=== PATIENT | male | born 1960 | race Caucasian/White ===

== ENCOUNTER 2020-07-25 10:22 | Outpatient (NON) | payer OTHER, SELFPAY ==
[2020-07-26 13:30] LABS: SARS-CoV-2 RNA PCR Negative
== END 2020-07-25 10:23 ==
PROVIDERS: Nurse Practitioner Family; PCP Family Medicine; Visit Provider Family Medicine
DX: R05 Cough (principal); Z20.828 Contact with and (suspected) exposure to other viral communicable diseases
CPT/HCPCS: 87635; C9803; U0003

== ENCOUNTER 2022-07-23 15:59 | Outpatient (CLI) | payer SELFPAY ==
[2022-07-23 16:34] LABS: Hematocrit 47.2 % (42.0-52.0); Hemoglobin 15.5 g/dL (14.0-18.0); Immature Platelet Fraction Pct 8.5 % (0.9-11.2); Mean Corpuscular HGB Conc 32.8 g/dl (32-36); Mean Corpuscular Hemoglobin 28.3 pg (26-34); Mean Corpuscular Volume 86.1 fl (80-100); Mean Platelet Volume 10.5 fl (7.4-10.4); Platelet Count Result 1408 k/mm3 (150-375); Red Blood Count 5.48 M/mm3 (4.6-6.20); White Blood Count 33.4 K/mm3 (4.5-10.0)
[2022-07-23 16:42] LABS: Alanine Aminotransferase 30 U/L (6-50); Albumin Level 4.8 g/dL (3.5-5.1); Alkaline Phosphatase 54 U/L (38-126); Anion Gap 10 mmol/L (8-16); Aspartate Amino Transferase 28 U/L (17-59); Bilirubin,Total 0.6 mg/dL (0.2-1.3); Blood Urea Nitrogen 13 mg/dL (9-20); Calcium 9.5 mg/dL (8.4-10.2); Carbon Dioxide 29 mmol/L (22-30); Chloride 104 mmol/L (98-107); Cholesterol 182 mg/dL (0-200); Estimated Glomerular Filt Rate > 60; Glucose 88 mg/dL (65-110); HDL Direct 35 mg/dL; Potassium 3.9 mmol/L (3.4-5.0); Sodium 143 mmol/L (137-145); Triglycerides 217 mg/dL (<150)
[2022-07-23 16:53] LABS: LDL Cholesterol Direct 102 mg/dL
[2022-07-23 17:14] LABS: Prostate Specific Antigen 2.1 ng/mL (< OR = 4.0)
[2022-07-23 21:20] LABS: Band Neutrophils Percent 1 % (0-6); Basophils Percent Manual 3 % (0-1); Lymphocytes Absolute Manual 4.67 K/mm3 (1.1-4.5); Metamyelocytes Percent 2 %; Monocytes Absolute Manual 0.33 K/mm3 (0.1-0.90); Monocytes Percent Manual 1 % (3-9); Myelocytes Percent 2 %; Neutrophils Absolute Manual 26.05 K/mm3 (1.3-6.7); Neutrophils Percent Manual 77 % (46-73); Platelet Estimate Increased (Adequate); Total Cells Counted 100
[2022-07-23 21:21] LABS: Schistocytes None Seen (NORMAL)
== END 2022-07-23 16:00 | disposition home or self-care (01) ==
PROVIDERS: PCP Family Medicine; Visit Provider Nurse Practitioner Gerontology
DX: E78.2 Mixed hyperlipidemia (principal); I10 Essential (primary) hypertension; Z12.5 Encounter for screening for malignant neoplasm of prostate
CPT/HCPCS: 36415; 80053; 80061; 84153; 85025; 85055; G0103

== ENCOUNTER 2022-08-09 06:11 | Emergency (ER) | payer SELFPAY ==
[2022-08-09] VITALS (24 sets, daily range): BP systolic 108–180; BP diastolic 67–86; PULSE 57–86; RESP 12–24; TEMP 36.5–37.2; O2SAT 94–97
--- NOTE | ~2022-08-09 | CT_ITS ---
EXAMINATION: CTA chest PE protocol DATE: 08/09/2022 07:49 INDICATION: Left chest pain. TECHNIQUE: Computed tomography angiography (CTA) of the chest was performed with 100 mL Omnipaque-350 intravenous contrast timed to evaluate the pulmonary arteries. Coronal maximum intensity projection 3D-reconstructions were created by the technologist. Automated exposure control and iterative reconst ruction technique were employed. The dose-length product was 712.78 mGy-cm. COMPARISON: Chest CT 01/18/2010 FINDINGS: There is no pneumonia or pleural effusion. The heart size is normal. No pericardial effusio n. There are coronary artery calcifications. There is no pulmonary embolus. There are cysts in the li chitra measuring up to 9 mm. There is mild thoracic spondylosis. IMPRESSION: 1. No pulmonary embolus. Sensitivity is severely decreased in the inferior lungs by motion artifact. Reviewed, dictated and finalized at location A. UPPER AND BOTTOM LACER IMPRESSION: 1. No pulmonary embolus. Sensitivity is severely decreased in the inferior lung s by motion artifact.
--- NOTE | ~2022-08-09 | XR_ITS ---
EXAMINATION: XR chest 2V DATE: 08/09/2022 07:23 INDICATION: Left chest and shoulder pain. TECHNIQUE: Frontal and lateral views of the chest were obtained. COMPARISON: Chest 2 views 03/03/2015 FINDINGS: The chest demonstrates clear lungs without pneumonia, pleural effusion, or pneumothorax. Th e heart size is normal. IMPRESSION: 1. No acute cardiopulmonary disease. Reviewed, dictated and finalized at location A. 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
--- NOTE | 2022-08-09 06:17 | ECG_ITS ---
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
[2022-08-09] MEDS: KETOROLAC 30 MG/ML VIAL (*BKC) IV PUSH (06:55)
[2022-08-09 07:01] LABS: Hematocrit 46.8 % (40.0-54.0); Hemoglobin 15.8 g/dL (14.0-18.0); Immature Platelet Fraction Pct 4.5 % (1.0-7.0); Mean Corpuscular HGB Conc 33.8 g/dL (32.0-36.0); Mean Corpuscular Hemoglobin 28.6 pg (27.0-31.0); Mean Corpuscular Volume 84.8 fL (78.0-102.0); Mean Platelet Volume 10.6 fl (8.7-11.0); Platelet Count Result 1110 K/mm3 (150-420); Red Blood Count 5.52 M/mm3 (4.70-6.10); Red Cell Distribution Width 18.1 % (11.6-14.4)
--- NOTE | 2022-08-09 07:02 | PC.NURSE ---
Report given to MADELIN Obrien
[2022-08-09 07:04] LABS: White Blood Count 28.8 K/mm3 (4.8-10.8)
[2022-08-09 07:12] LABS: Add Urine Microscopic? YES; Appearance Urine Clear (Clear); Bilirubin Urine Negative (Negative); Blood Urine 1+ (Negative); Color Urine Light Yellow (Yellow); Glucose Urine UA Negative (Negative); Ketones Urine Negative (Negative); Leukocyte Esterase Ur Negative LEU/UL (Negative); Nitrate Urine Negative (Negative); Protein Urine Negative (Negative); Urobilinogen Urine 0.2 mg/dL (0.2-1.0)
[2022-08-09 07:13] LABS: INR 1.1; Partial Thromboplastin Time 29.7 SEC (23.90-30.70); Prothrombin Time 11.9 Seconds (9.50-12.10)
[2022-08-09 07:21] LABS: Alanine Aminotransferase 32 U/L (16-63); Albumin Level 3.9 g/dL (3.4-5.0); Alkaline Phosphatase 67 U/L (46-116); Anion Gap 11 mmol/L (8-16); Aspartate Amino Transferase 19 U/L (15-37); Bilirubin,Total 0.4 mg/dL (0.00-1.00); Blood Urea Nitrogen 7 mg/dL (7-18); Calcium 8.7 mg/dL (8.5-10.1); Carbon Dioxide 24 mmol/L (21-32); Chloride 102 mmol/L (98-108); Estimated CRCL calculation 91 ml/min; Estimated Glomerular Filt Rate > 60; Glucose 116 mg/dL (70-99); Lipase 66 U/L (73-393); NT Pro B Type Natriuretic Pept 30 pg/mL (0-125); Osmolality Calculated 283 mOsm/kg (285-295); Potassium 3.2 mmol/L (3.5-5.1); Sodium 137 mmol/L (136-145)
[2022-08-09 07:22] LABS: Troponin I 8.4 ng/L (0.00-60.4)
[2022-08-09 07:22] LABS: RBC Urine 0-2 /hpf (0-2); WBC Urine None seen /hpf (0-3)
[2022-08-09 07:23] LABS: D Dimer 1.16 mg/L (0.19-0.50)
[2022-08-09 07:23] LABS: Bacteria Urine None seen /hpf
--- NOTE | 2022-08-09 07:23 | PC.NURSE ---
ddimer 1.16. erp made aware.
[2022-08-09 07:24] LABS: Band Neutrophils Percent 1 % (0-6); Lymphocytes Absolute Manual 0.86 K/mm3 (1.1-4.5); Lymphocytes Percent Manual 3 % (18-44); Monocytes Absolute Manual 0.86 K/mm3 (0.1-0.90); Monocytes Percent Manual 3 % (3-9); Neutrophils Absolute Manual 26.49 K/mm3 (1.3-6.7); Neutrophils Percent Manual 91 % (46-73); Platelet Estimate Increased (Adequate); Total Cells Counted 100
== END 2022-08-09 10:13 | disposition home or self-care (01) ==
PROVIDERS: Emergency Medicine; Emergency Provider Emergency Medicine; PCP Family Medicine
DX: R07.89 Other chest pain (principal); D72.829 Elevated white blood cell count, unspecified; I10 Essential (primary) hypertension; E78.2 Mixed hyperlipidemia; F17.210 Nicotine dependence, cigarettes, uncomplicated
CPT/HCPCS: 36415; 71046; 71275; 80053; 81001; 83690; 83880; 84484; 85025; 85055; 85380; 85610; 85730; 93005; 96374; 99284; J1885; Q9967

== ENCOUNTER 2022-09-06 10:23 | Outpatient (CLI) | payer SELFPAY ==
[2022-09-06 10:52] LABS: Basophils Absolute Auto 2.7 K/mm3 (0.0-0.1); Basophils Percent Auto 7.9 % (0.2-1.2); Eosinophils Absolute Auto 0.4 K/mm3 (0-0.3); Eosinophils Percent Auto 1.2 % (0-4.4); Hematocrit 46.1 % (42.0-52.0); Hemoglobin 15.3 g/dL (14.0-18.0); Immature Granulocyte Absolute 3.31 K/mm3 (0.00-0.031); Immature Granulocyte Percent A 9.7 % (0-0.5); Immature Platelet Fraction Pct 8.1 % (0.9-11.2); Lymphocytes Absolute Auto 4.94 K/mm3 (0.9-3.2); Lymphocytes Percent Auto 14.4 % (18.3-44.2); Mean Corpuscular HGB Conc 33.2 g/dl (32-36); Mean Corpuscular Hemoglobin 28.7 pg (26-34); Mean Corpuscular Volume 86.5 fl (80-100); Mean Platelet Volume 10.7 fl (7.4-10.4); Monocytes Absolute Auto 0.8 K/mm3 (0.1-0.6); Monocytes Percent Auto 2.5 % (2.6-8.5); Neutrophils Percent Auto 64.3 % (45.5-73.1); Nucleated Red Blood Cells Perc 0.1 % (0.0-0.2); Platelet Count Result 1371 k/mm3 (150-375); Red Blood Count 5.33 M/mm3 (4.6-6.20); Red Cell Distribution Width 18.7 % (11.5-14.5); White Blood Count 34.2 K/mm3 (4.5-10.0)
[2022-09-06 11:00] LABS: Alanine Aminotransferase 31 U/L (6-50); Albumin Level 4.6 g/dL (3.5-5.1); Alkaline Phosphatase 55 U/L (38-126); Anion Gap 5 mmol/L (8-16); Aspartate Amino Transferase 27 U/L (17-59); Bilirubin,Total 0.5 mg/dL (0.2-1.3); Blood Urea Nitrogen 13 mg/dL (9-20); Calcium 9.3 mg/dL (8.4-10.2); Carbon Dioxide 29 mmol/L (22-30); Chloride 105 mmol/L (98-107); Estimated Glomerular Filt Rate > 60; Glucose 103 mg/dL (65-110); Potassium 3.7 mmol/L (3.4-5.0); Sodium 139 mmol/L (137-145)
[2022-09-06 11:38] LABS: Atypical Lymphocytes Present; Platelet Estimate Increased (Adequate); Schistocytes None Seen (NORMAL)
[2022-09-13 16:45] LABS: CALR Exon 9 Mutation Not Detected (Not Detected); CSF3R Exon 14/17 Mutation Not Detected (Not Detected); JAK2 Exon 12 Mutation Not Detected (Not Detected); JAK2 V617F Mutation Not Detected (Not Detected); MPL Exon 10 Mutation Not Detected (Not Detected); Specimen Source Blood
[2022-09-16 09:20] LABS: BCR/abl Prior Result Not Given
[2022-09-16 10:08] LABS: BCR/abl P190 Not Detected; BCR/abl P210 Detected
[2022-09-16 10:09] LABS: BCR/abl P190 Chg YES; BCR/abl P210 Chg YES
== END 2022-09-06 10:24 | disposition home or self-care (01) ==
LOC: ANHLAB 10:25
PROVIDERS: PCP Family Medicine; Visit Provider Internal Medicine Hematology & Oncology
DX: D72.829 Elevated white blood cell count, unspecified (principal)
CPT/HCPCS: 36415; 80053; 81206; 81207; 81219; 81270; 81279; 81339; 81479; 85025; 85055; 88184; 88185

== ENCOUNTER 2023-01-01 10:48 | Outpatient (CLI) | payer MEDICAID, SELFPAY ==
[2023-01-01 11:35] LABS: Basophils Absolute Auto 0.1 K/mm3 (0.0-0.1); Basophils Percent Auto 0.5 % (0.2-1.2); Eosinophils Absolute Auto 0.3 K/mm3 (0-0.3); Eosinophils Percent Auto 2.8 % (0-4.4); Hematocrit 44.5 % (42.0-52.0); Hemoglobin 14.8 g/dL (14.0-18.0); Immature Granulocyte Absolute 0.04 K/mm3 (0.00-0.031); Immature Granulocyte Percent A 0.4 % (0-0.5); Lymphocytes Absolute Auto 1.63 K/mm3 (0.9-3.2); Lymphocytes Percent Auto 16.1 % (18.3-44.2); Mean Corpuscular HGB Conc 33.3 g/dl (32-36); Mean Corpuscular Hemoglobin 27.4 pg (26-34); Mean Corpuscular Volume 82.4 fl (80-100); Mean Platelet Volume 11.5 fl (7.4-10.4); Monocytes Percent Auto 9.5 % (2.6-8.5); Neutrophils Absolute Auto 7.2 K/mm3 (1.3-6.7); Neutrophils Percent Auto 70.7 % (45.5-73.1); Platelet Count Result 168 k/mm3 (150-375); Red Cell Distribution Width 15.3 % (11.5-14.5); White Blood Count 10.2 K/mm3 (4.5-10.0)
[2023-01-01 12:02] LABS: Alanine Aminotransferase 471 U/L (6-50); Albumin Level 4.3 g/dL (3.5-5.1); Alkaline Phosphatase 81 U/L (38-126); Anion Gap 4 mmol/L (8-16); Aspartate Amino Transferase 133 U/L (17-59); Bilirubin,Total 0.6 mg/dL (0.2-1.3); Blood Urea Nitrogen 13 mg/dL (9-20); Calcium 9.3 mg/dL (8.4-10.2); Carbon Dioxide 32 mmol/L (22-30); Chloride 102 mmol/L (98-107); Estimated Glomerular Filt Rate > 60; Glucose 132 mg/dL (65-110); Potassium 3.4 mmol/L (3.4-5.0); Sodium 138 mmol/L (137-145)
== END 2023-01-01 10:49 | disposition home or self-care (01) ==
LOC: ANHLAB 10:52
PROVIDERS: PCP Family Medicine; Visit Provider Internal Medicine Hematology & Oncology
DX: D72.829 Elevated white blood cell count, unspecified (principal)
CPT/HCPCS: 36415; 80053; 85025

== ENCOUNTER 2023-04-01 11:23 | Outpatient (CLI) | payer OTHER, SELFPAY ==
[2023-04-01 11:37] LABS: Basophils Absolute Auto 0.08 K/mm3 (0.00-0.10); Basophils Percent Auto 0.8 % (0.0-1.0); Eosinophils Absolute Auto 0.37 K/mm3 (0.02-0.50); Eosinophils Percent Auto 3.8 % (1.0-6.0); Hematocrit 49.2 % (40.0-54.0); Hemoglobin 15.9 g/dL (14.0-18.0); Immature Granulocyte Absolute 0.03 K/mm3 (0.00-0.00); Immature Granulocyte Percent A 0.3 % (0.0-0.0); Lymphocytes Absolute Auto 2.21 K/mm3 (1.10-4.50); Lymphocytes Percent Auto 22.6 % (18.0-42.0); Mean Corpuscular HGB Conc 32.3 g/dL (32.0-36.0); Mean Corpuscular Hemoglobin 29.3 pg (27.0-31.0); Mean Corpuscular Volume 90.8 fL (78.0-102.0); Mean Platelet Volume 11.9 fl (8.7-11.0); Monocytes Absolute Auto 0.77 K/mm3 (0.10-0.90); Monocytes Percent Auto 7.9 % (2.0-11.0); Neutrophils Absolute Auto 6.3 K/mm3 (1.7-7.2); Neutrophils Percent Auto 64.6 % (50.0-70.0); Platelet Count Result 144 K/mm3 (150-420); Red Blood Count 5.42 M/mm3 (4.70-6.10); Red Cell Distribution Width 17.3 % (11.6-14.4); White Blood Count 9.8 K/mm3 (4.8-10.8)
[2023-04-01 12:28] LABS: Alanine Aminotransferase 94 U/L (16-63); Albumin Level 4.4 g/dL (3.4-5.0); Alkaline Phosphatase 82 U/L (46-116); Anion Gap 9 mmol/L (8-16); Aspartate Amino Transferase 32 U/L (15-37); Bilirubin,Total 0.5 mg/dL (0.00-1.00); Blood Urea Nitrogen 11 mg/dL (7-18); Calcium 9.5 mg/dL (8.5-10.1); Carbon Dioxide 32 mmol/L (21-32); Chloride 103 mmol/L (98-108); Cholesterol 253 mg/dL (0-200); Estimated Glomerular Filt Rate > 60; Glucose 92 mg/dL (70-99); HDL Direct 47 mg/dL (40-60); LDL Cholesterol Calculated 187 mg/dL (<130); Osmolality Calculated 297 mOsm/kg (285-295); Potassium 3.5 mmol/L (3.5-5.1); Sodium 144 mmol/L (136-145); Total Protein 7.3 g/dL (6.4-8.2); Triglycerides 94 mg/dL (0-150)
[2023-04-06 03:44] LABS: Hepatitis A Antibody IgM Nonreactive; Hepatitis B Core Antibody Nonreactive (Nonreactive); Hepatitis B Surface Antigen Nonreactive (Nonreactive); Hepatitis C Virus Antibody Nonreactive
== END 2023-04-01 11:24 | disposition home or self-care (01) ==
LOC: CHSLAB 11:26
PROVIDERS: PCP Family Medicine; Visit Provider Family Medicine
DX: R74.01 Elevation of levels of liver transaminase levels (principal); I10 Essential (primary) hypertension
CPT/HCPCS: 36415; 80053; 80061; 80074; 85025

== ENCOUNTER 2023-04-04 07:37 | Outpatient (CLI) | payer OTHER, SELFPAY ==
--- NOTE | ~2023-04-04 | CT_ITS ---
CT of the Abdomen and Pelvis: Indication: Abdominal mass, swelling Technique: 2.5 mm axial scans were obtained through the abdomen and pelvis following intravenous adm inistration of 100 cc of Omnipaque 350. Dose reduction technique was used on this scan by utilizing a utomated exposure control and iterative reconstruction technique. The dose-length product (DLP) was 9 78.34 mGy-cm. COMPARISON: 01/17/2010 Findings: Scans through the lung bases demonstrates stable left basilar pulmonary nodule. Small right hepatic lobe cysts noted. The spleen, pancreas, gallbladder, adrenals and kidneys are wit hin normal limits. There are atherosclerotic calcifications of the aorta. No lymphadenopathy. No bowel obstruction or bowel wall thickening. There is no evidence to suggest acute appendicitis. Images through the pelvis were performed. Urinary bladder unremarkable. Prostate gland and seminal ve sicles are unremarkable. No ascites. Impression: No significant abnormalities seen. Reviewed, dictated and finalized at [facility]. Impression: No significant abnormalities seen.
== END 2023-04-04 07:38 | disposition home or self-care (01) ==
LOC: CHSIMG 07:38
PROVIDERS: PCP Family Medicine; Visit Provider Family Medicine
DX: R19.00 Intra-abdominal and pelvic swelling, mass and lump, unspecified site (principal)
CPT/HCPCS: 74177; Q9967

== ENCOUNTER 2023-04-30 12:48 | Outpatient (CLI) | payer OTHER, SELFPAY ==
[2023-04-30 13:14] LABS: Basophils Absolute Auto 0.07 K/mm3 (0.00-0.10); Basophils Percent Auto 0.8 % (0.0-1.0); Eosinophils Absolute Auto 0.37 K/mm3 (0.02-0.50); Eosinophils Percent Auto 4.1 % (1.0-6.0); Hematocrit 47.6 % (40.0-54.0); Hemoglobin 15.4 g/dL (14.0-18.0); Immature Granulocyte Absolute 0.02 K/mm3 (0.00-0.00); Immature Granulocyte Percent A 0.2 % (0.0-0.0); Immature Platelet Fraction Pct 6.2 % (1.0-7.0); Lymphocytes Absolute Auto 2.26 K/mm3 (1.10-4.50); Lymphocytes Percent Auto 24.9 % (18.0-42.0); Mean Corpuscular HGB Conc 32.4 g/dL (32.0-36.0); Mean Corpuscular Hemoglobin 30.3 pg (27.0-31.0); Mean Corpuscular Volume 93.5 fL (78.0-102.0); Mean Platelet Volume 11.7 fl (8.7-11.0); Monocytes Absolute Auto 0.68 K/mm3 (0.10-0.90); Monocytes Percent Auto 7.5 % (2.0-11.0); Neutrophils Absolute Auto 5.7 K/mm3 (1.7-7.2); Neutrophils Percent Auto 62.5 % (50.0-70.0); Platelet Count Result 128 K/mm3 (150-420); Red Blood Count 5.09 M/mm3 (4.70-6.10); Red Cell Distribution Width 14.2 % (11.6-14.4); White Blood Count 9.1 K/mm3 (4.8-10.8)
[2023-04-30 13:56] LABS: Alanine Aminotransferase 63 U/L (16-63); Albumin Level 3.7 g/dL (3.4-5.0); Alkaline Phosphatase 71 U/L (46-116); Anion Gap 5 mmol/L (8-16); Aspartate Amino Transferase 30 U/L (15-37); Bilirubin,Total 0.3 mg/dL (0.00-1.00); Blood Urea Nitrogen 17 mg/dL (7-18); Calcium 9.1 mg/dL (8.5-10.1); Carbon Dioxide 32 mmol/L (21-32); Chloride 107 mmol/L (98-108); Estimated Glomerular Filt Rate > 60; Glucose 97 mg/dL (70-99); Osmolality Calculated 299 mOsm/kg (285-295); Potassium 3.9 mmol/L (3.5-5.1); Sodium 144 mmol/L (136-145); Total Protein 6.6 g/dL (6.4-8.2)
[2023-05-06 14:38] LABS: BCR/abl Prior Result See Report
[2023-05-06 15:25] LABS: BCR/abl P210 Not Detected; BCR/abl P210 Chg YES
== END 2023-04-30 12:49 | disposition home or self-care (01) ==
LOC: CHSLAB 12:52
PROVIDERS: PCP Family Medicine; Visit Provider Internal Medicine Hematology & Oncology
DX: C92.10 Chronic myeloid leukemia, BCR/ABL-positive, not having achieved remission (principal)
CPT/HCPCS: 36415; 80053; 81207; 85025; 85055

== ENCOUNTER 2023-06-04 23:06 | Emergency (ER) | payer OTHER, SELFPAY ==
[2023-06-04 23:06] VITALS: BP 145/88; PULSE 74; RESP 20; TEMP 37; O2SAT 99
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
[2023-06-04 23:58] LABS: Basophils Absolute Auto 0.04 K/mm3 (0.00-0.10); Basophils Percent Auto 0.4 % (0.0-1.0); Eosinophils Absolute Auto 0.13 K/mm3 (0.02-0.50); Eosinophils Percent Auto 1.2 % (1.0-6.0); Hematocrit 49.8 % (40.0-54.0); Hemoglobin 17.2 g/dL (14.0-18.0); Immature Granulocyte Absolute 0.06 K/mm3 (0.00-0.00); Immature Granulocyte Percent A 0.5 % (0.0-0.0); Lymphocytes Percent Auto 15.1 % (18.0-42.0); Mean Corpuscular HGB Conc 34.5 g/dL (32.0-36.0); Mean Corpuscular Volume 86.9 fL (78.0-102.0); Mean Platelet Volume 11.1 fl (8.7-11.0); Monocytes Absolute Auto 1.13 K/mm3 (0.10-0.90); Neutrophils Absolute Auto 8.2 K/mm3 (1.7-7.2); Neutrophils Percent Auto 72.8 % (50.0-70.0); Platelet Count Result 174 K/mm3 (150-420); Red Blood Count 5.73 M/mm3 (4.70-6.10); Red Cell Distribution Width 13.2 % (11.6-14.4); White Blood Count 11.3 K/mm3 (4.8-10.8)
[2023-06-05] MEDS: LACTATED RINGERS 1,000 ML 999 ML IV CONT (00:01)
[2023-06-05 00:02] LABS: Strep Group A RT-PCR NOT DETECTED (Negative)
[2023-06-05] MEDS: ONDANSETRON INJ 4 MG/2 ML VIAL IV PUSH (00:02)
[2023-06-05 00:03] LABS: Influenza A QL RT-PCR Negative (Negative); Influenza B QL RT-PCR Negative (Negative); SARS-CoV-2 RNA PCR Negative (Negative)
[2023-06-05 00:04] LABS: RSV RNA, RT-PCR Negative (Negative)
[2023-06-05 00:11] LABS: INR 1.1; Prothrombin Time 12.4 Seconds (9.50-12.10)
[2023-06-05 00:18] LABS: Alanine Aminotransferase 60 U/L (16-63); Albumin Level 3.9 g/dL (3.4-5.0); Alkaline Phosphatase 75 U/L (46-116); Anion Gap 10 mmol/L (8-16); Aspartate Amino Transferase 18 U/L (15-37); Bilirubin,Total 0.6 mg/dL (0.00-1.00); Blood Urea Nitrogen 17 mg/dL (7-18); Calcium 8.7 mg/dL (8.5-10.1); Carbon Dioxide 27 mmol/L (21-32); Chloride 98 mmol/L (98-108); Estimated CRCL calculation 72 ml/min; Estimated Glomerular Filt Rate > 60; Glucose 119 mg/dL (70-99); Osmolality Calculated 282 mOsm/kg (285-295); Sodium 135 mmol/L (136-145); Total Protein 6.8 g/dL (6.4-8.2)
[2023-06-05 00:19] VITALS: BP 132/82; PULSE 66; RESP 20; O2SAT 99
[2023-06-05 00:20] LABS: Lactic Acid Reflex 1.2 mmol/L (0.4-2.0); Potassium 2.5 mmol/L (3.5-5.1)
[2023-06-05] MEDS: POTASSIUM CHLORIDE 20 MEQ ER TABLET 40 MEQ PO (00:20)
[2023-06-05] MEDS: SPIRONOLACTONE 25 MG TABLET PO (00:20)
[2023-06-05 00:31] LABS: Lipase 34 U/L (16-77)
[2023-06-05 00:43] LABS: Magnesium 2.2 mg/dL (1.8-2.4)
[2023-06-05 01:00] VITALS: BP 139/80; PULSE 80; RESP 20; O2SAT 99
[2023-06-05] MEDS: LACTATED RINGERS 500 ML 999 ML IV CONT (01:22)
[2023-06-05 02:05] VITALS: BP 128/80; PULSE 88; RESP 18; TEMP 36.6; O2SAT 98
== END 2023-06-05 02:08 | disposition home or self-care (01) ==
PROVIDERS: Emergency Provider Internal Medicine Critical Care Medicine; PCP Family Medicine
DX: K52.9 Noninfective gastroenteritis and colitis, unspecified (principal); E87.6 Hypokalemia; I10 Essential (primary) hypertension; E78.2 Mixed hyperlipidemia; F17.210 Nicotine dependence, cigarettes, uncomplicated; Z20.822 Contact with and (suspected) exposure to COVID-19
CPT/HCPCS: 36415; 80053; 83605; 83690; 83735; 85025; 85610; 87637; 87651; 96361; 96374; 99284; A9270; J2405; J7120

== ENCOUNTER 2023-09-16 10:33 | Outpatient (CLI) | payer OTHER, SELFPAY ==
[2023-09-16 11:18] LABS: Basophils Absolute Auto 0.04 K/mm3 (0.00-0.10); Basophils Percent Auto 0.4 % (0.0-1.0); Eosinophils Absolute Auto 0.14 K/mm3 (0.02-0.50); Eosinophils Percent Auto 1.4 % (1.0-6.0); Hematocrit 44.9 % (40.0-54.0); Hemoglobin 14.7 g/dL (14.0-18.0); Immature Granulocyte Absolute 0.04 K/mm3 (0.00-0.00); Immature Granulocyte Percent A 0.4 % (0.0-0.0); Lymphocytes Absolute Auto 1.92 K/mm3 (1.10-4.50); Lymphocytes Percent Auto 19.1 % (18.0-42.0); Mean Corpuscular HGB Conc 32.7 g/dL (32.0-36.0); Mean Corpuscular Hemoglobin 29.2 pg (27.0-31.0); Mean Corpuscular Volume 89.3 fL (78.0-102.0); Mean Platelet Volume 11.1 fl (8.7-11.0); Monocytes Absolute Auto 0.68 K/mm3 (0.10-0.90); Monocytes Percent Auto 6.8 % (2.0-11.0); Neutrophils Absolute Auto 7.2 K/mm3 (1.7-7.2); Neutrophils Percent Auto 71.9 % (50.0-70.0); Platelet Count Result 174 K/mm3 (150-420); Red Blood Count 5.03 M/mm3 (4.70-6.10); Red Cell Distribution Width 14.4 % (11.6-14.4)
[2023-09-16 12:33] LABS: Alanine Aminotransferase 43 U/L (16-63); Albumin Level 4.2 g/dL (3.4-5.0); Alkaline Phosphatase 64 U/L (46-116); Anion Gap 11 mmol/L (8-16); Aspartate Amino Transferase 23 U/L (15-37); Bilirubin,Total 0.6 mg/dL (0.00-1.00); Blood Urea Nitrogen 9 mg/dL (7-18); Calcium 8.9 mg/dL (8.5-10.1); Carbon Dioxide 29 mmol/L (21-32); Chloride 100 mmol/L (98-108); Estimated Glomerular Filt Rate > 60; Glucose 89 mg/dL (70-99); Osmolality Calculated 287 mOsm/kg (285-295); Potassium 3.4 mmol/L (3.5-5.1); Sodium 140 mmol/L (136-145)
[2023-09-21 12:09] LABS: BCR/abl Prior Result See Report
[2023-09-21 12:54] LABS: BCR/abl P210 Not Detected
[2023-09-21 12:55] LABS: BCR/abl P210 Chg YES
== END 2023-09-16 10:34 | disposition home or self-care (01) ==
PROVIDERS: PCP Family Medicine; Visit Provider Internal Medicine Hematology & Oncology
DX: C92.10 Chronic myeloid leukemia, BCR/ABL-positive, not having achieved remission (principal)
CPT/HCPCS: 36415; 80053; 81207; 85025

== ENCOUNTER 2023-11-24 08:45 | Outpatient (CLI) | payer OTHER, SELFPAY ==
--- NOTE | ~2023-11-24 | CT_ITS ---
CT Scan of the Chest without Contrast: Clinical Indication: Lung cancer screening, history of nicotine dependence Technique: Contiguous sections were acquired throughout the chest without intravenous contrast. Dose reduction technique was used on this scan by utilizing automated exposure control and iterative recon struction technique. The dose-length product (DLP) was 119.41 mGy-cm. Findings: There is no evidence of any significant mediastinal, hilar or axillary lymphadenopathy. There are ath erosclerotic calcifications of the aorta and coronary arteries. There is no evidence of pleural or pericardial effusion. 2 mm posterior right upper lobe pulmonary nodule noted. 2 subcentimeter groundglass pulmonary nodules or masses in the right lung (axial image 55). Images through the upper abdomen reveal no abnormalities. Impression: Lung RADS 2: Benign appearance. 12 month follow-up screening CT advised. Reviewed, dictated and finalized at location . Impression: Lung RADS 2: Benign appearance. 12 month follow-up screening CT advised.
== END 2023-11-24 08:46 | disposition home or self-care (01) ==
LOC: CHSIMG 08:47
PROVIDERS: PCP Family Medicine; Visit Provider Internal Medicine Hematology & Oncology
DX: Z12.2 Encounter for screening for malignant neoplasm of respiratory organs (principal); Z87.891 Personal history of nicotine dependence
CPT/HCPCS: 71271

== ENCOUNTER 2024-03-16 09:52 | Outpatient (CLI) | payer OTHER, SELFPAY ==
[2024-03-16 10:11] LABS: Basophils Absolute Auto 0.05 K/mm3 (0.00-0.10); Basophils Percent Auto 0.4 % (0.0-1.0); Eosinophils Absolute Auto 0.26 K/mm3 (0.02-0.50); Eosinophils Percent Auto 2.1 % (1.0-6.0); Hematocrit 46.4 % (40.0-54.0); Hemoglobin 15.5 g/dL (14.0-18.0); Immature Granulocyte Absolute 0.06 K/mm3 (0.00-0.00); Immature Granulocyte Percent A 0.5 % (0.0-0.0); Lymphocytes Absolute Auto 2.31 K/mm3 (1.10-4.50); Lymphocytes Percent Auto 18.2 % (18.0-42.0); Mean Corpuscular HGB Conc 33.4 g/dL (32-36); Mean Corpuscular Volume 89.9 fL (78.0-102.0); Mean Platelet Volume 10.6 fl (8.7-11.0); Monocytes Absolute Auto 0.81 K/mm3 (0.10-0.90); Monocytes Percent Auto 6.4 % (2.0-11.0); Neutrophils Absolute Auto 9.19 K/mm3 (1.70-7.20); Neutrophils Percent Auto 72.4 % (50.0-70.0); Platelet Count Result 203 K/mm3 (150-420); Red Blood Count 5.16 M/mm3 (4.70-6.10); Red Cell Distribution Width 15.1 % (11.6-14.4); White Blood Count 12.7 K/mm3 (4.8-10.8)
[2024-03-16 11:11] LABS: Alanine Aminotransferase 33 U/L (16-63); Albumin Level 4.1 g/dL (3.4-5.0); Alkaline Phosphatase 81 U/L (46-116); Anion Gap 10 mmol/L (4-12); Aspartate Amino Transferase 18 U/L (15-37); Bilirubin,Total 0.4 mg/dL (0.00-1.00); Blood Urea Nitrogen 8 mg/dL (7-18); Calcium 9.2 mg/dL (8.5-10.1); Carbon Dioxide 30 mmol/L (21-32); Chloride 99 mmol/L (98-108); Estimated Glomerular Filt Rate > 60; Glucose 95 mg/dL (70-99); Osmolality Calculated 286 mOsm/kg (285-295); Potassium 3.7 mmol/L (3.5-5.1); Prostate Specific Antigen 4.5 ng/mL (< OR = 4.0); Sodium 139 mmol/L (136-145); Total Protein 7.2 g/dL (6.4-8.2)
[2024-03-19 04:14] LABS: Immunoglobulin A 146 mg/dL (70-320); TTG IGA AB <1.0 U/mL
[2024-03-22 10:39] LABS: BCR/abl P190 NOT DETECTED; BCR/abl P210 NOT DETECTED; BCR/abl Source PERIPHERAL
== END 2024-03-16 09:53 | disposition home or self-care (01) ==
LOC: CHSLAB 09:55
PROVIDERS: PCP Family Medicine; Visit Provider Internal Medicine Hematology & Oncology
DX: I10 Essential (primary) hypertension (principal); R35.1 Nocturia; Z12.5 Encounter for screening for malignant neoplasm of prostate; C92.10 Chronic myeloid leukemia, BCR/ABL-positive, not having achieved remission
CPT/HCPCS: 36415; 80053; 82784; 83516; 84153; 85025; G0103

== ENCOUNTER 2024-06-02 10:13 | Outpatient (RCR) | payer OTHER, SELFPAY ==
--- NOTE | 2024-06-02 11:36 | PTOPEVAL1 ---
Assessment and note entered by Rico Blanco Evaluation Information Assessment Status Evaluation Diagnosis dorsalgia M54.9, impingement syndrome of left shoulder M75.42 ICD-10 Condition Codes (PT) Cervicalgia M54.2 Onset 05/27/24 Subjective Information Pt. reports that that he has had back and neck pain for many years. He reports that in 2014 he fell off a ladder resulting in chronic pain. He reports that he is currently having pain across the low back and radiates into both legs. He reports that his pain is constant and can fluctuate in intensity. He states that he also has neck pain described on the left side and radiates into the left arm. He reports that he does have some right side pain, but not as bad as the left. He states that he is not working, and is currently applying for disability. He reports that he is still able to drive, but cannot drive for long duration due to pain in the low back and numbness that can develop in the feet. He states that he can stand for about 1 hour before having to sit due to pain. He states that he still does light yard work, but has to pace himself and sit frequently. He states that he avoids any heavy lifting. Pt. reports that sleep is difficult due to back and neck pain. He states that his goal is to reduce his pain. Reported Pain Level Pain Score 3,7,8: Self Report Assessment PT Clinical Summary Pt. is a 64 year old male who presents to the clinic with diagnoses of left shoulder impingement , neck pain and low back pain. He presents with impaired trunk ROM, impaired cervical ROM, impaired u.e. and l.e. strength, impaired gait, and functional decline. Pt. is right hand dominant. Continued skilled PT is indicated in order to improve these areas to improve pt. comfort and efficiency with IADL's. Plan of Care Interventions Electrical Stimulation,Gait Training,Hot Pack/Cold Pack,Manual Therapy,Mechanical Traction,Neuro Re- education,Patient/Caregiver Educati,Therapeutic Activities,Therapeutic Exercise PT Services Indicated Yes Treatment Frequency and 2x/week x 10 visits Duration These treatments will address the objective and functional deficits as defined above. The patient will be advanced safely and appropriately in order for the patient to progress towards his/her prior level of function. Additional exercises will be introduced and as well as a comprehensive home exercise program upon discharge, if needed, ?to ensure carryover of functional gains achieved in the clinic. This treatment plan has been reviewed and agreement upon by the patient.
--- NOTE | 2024-06-02 11:49 | OPREHPOC ---
Outpatient Therapy Plan of Care This is a Multidisciplinary Plan of Care that may contain components documented by all disciplines (PT, OT, and ST.) PT Problem 1 PT Problem #1 Knowledge Deficit PT Goal 1 Goal / Goal Update Pt. will be independent with a HEP addressing strength, mobility and postural awareness Target Visit 2 PT Problem 2 PT Problem #2 Impaired Strength PT Goal 1 Goal / Goal Update Pt. will present with 5/5 proximal left u.e. strength Pt. will present with 5/5 gross proximal l.e. strength Target Visit 6 PT Problem 3 PT Problem #3 Impaired Functional Mobil PT Goal 1 Goal / Goal Update Pt. will perform 30-45 minutes of standing activities with pain reports at 5/10 at worst Pt. will be able to safely lift an object from floor to waist weight 20# with proper body mechanics and no pain increase x 10 reps Pt. will be able to lift 5# object overhead with the left u.e. without pain increase x 10 reps Pt. will present with 25% limitation on the NDI.
--- NOTE | 2024-06-07 13:21 | PCPTNOTE ---
Patient called & cancelled scheduled appointment this date due to [not feeling well ]
--- NOTE | 2024-06-10 09:32 | PCPTNOTE ---
No call no show this date. Pt called, did not answer and voicemail was not set up.
--- NOTE | 2024-08-04 07:42 | PCPTNOTE ---
Mr. Shah attended his initial evaluation on 06/02/24. He has failed to return to the clinic and will be discharged from our care. Refer to his initial evaluation for discharge status.
== END 2024-06-02 10:30 | disposition home or self-care (01) ==
LOC: CHSPT 10:13
PROVIDERS: Visit Provider Family Medicine
DX: M54.2 Cervicalgia (principal); M75.42 Impingement syndrome of left shoulder; M54.9 Dorsalgia, unspecified; G89.29 Other chronic pain
CPT/HCPCS: 97110; 97161

== ENCOUNTER 2024-07-20 09:52 | Outpatient (CLI) | payer OTHER, SELFPAY ==
[2024-07-20 10:10] LABS: Basophils Absolute Auto 0.05 K/mm3 (0.00-0.10); Basophils Percent Auto 0.5 % (0.0-1.0); Eosinophils Absolute Auto 0.26 K/mm3 (0.02-0.50); Eosinophils Percent Auto 2.4 % (1.0-6.0); Hemoglobin 14.6 g/dL (14.0-18.0); Immature Granulocyte Absolute 0.06 K/mm3 (0.00-0.00); Immature Granulocyte Percent A 0.6 % (0.0-0.0); Lymphocytes Absolute Auto 2.46 K/mm3 (1.10-4.50); Mean Corpuscular Hemoglobin 29.7 pg (27.0-31.0); Mean Corpuscular Volume 87.6 fL (78.0-102.0); Mean Platelet Volume 9.9 fl (8.7-11.0); Monocytes Absolute Auto 0.71 K/mm3 (0.10-0.90); Monocytes Percent Auto 6.6 % (2.0-11.0); Neutrophils Absolute Auto 7.16 K/mm3 (1.70-7.20); Neutrophils Percent Auto 66.9 % (50.0-70.0); Platelet Count Result 277 K/mm3 (150-420); Red Blood Count 4.91 M/mm3 (4.70-6.10); Red Cell Distribution Width 14.9 % (11.6-14.4); White Blood Count 10.7 K/mm3 (4.8-10.8)
[2024-07-20 11:08] LABS: Alanine Aminotransferase 37 U/L (16-63); Albumin Level 3.8 g/dL (3.4-5.0); Alkaline Phosphatase 88 U/L (46-116); Anion Gap 7 mmol/L (4-12); Aspartate Amino Transferase 19 U/L (15-37); Bilirubin,Total 0.4 mg/dL (0.00-1.00); Blood Urea Nitrogen 15 mg/dL (7-18); Carbon Dioxide 30 mmol/L (21-32); Chloride 101 mmol/L (98-108); Estimated Glomerular Filt Rate > 60; Glucose 92 mg/dL (70-99); Osmolality Calculated 286 mOsm/kg (285-295); Potassium 4.2 mmol/L (3.5-5.1); Sodium 138 mmol/L (136-145); Total Protein 6.9 g/dL (6.4-8.2)
[2024-07-24 17:58] LABS: BCR/abl P190 NOT DETECTED; BCR/abl P210 NOT DETECTED; BCR/abl Prior Result NG; BCR/abl Source NG
== END 2024-07-20 09:53 | disposition home or self-care (01) ==
PROVIDERS: PCP Family Medicine; Visit Provider Internal Medicine Hematology & Oncology
DX: C92.10 Chronic myeloid leukemia, BCR/ABL-positive, not having achieved remission (principal)
CPT/HCPCS: 36415; 80053; 85025

== ENCOUNTER 2024-11-25 09:10 | Outpatient (CLI) | payer OTHER, SELFPAY ==
--- NOTE | ~2024-11-25 | CT_ITS ---
CT Scan of the Chest without Contrast: Clinical Indication: Pulmonary nodule Technique: Contiguous sections were acquired throughout the chest without intravenous contrast. Dose reduction technique was used on this scan by utilizing automated exposure control and iterative recon struction technique. The dose-length product (DLP) was 248.75 mGy-cm. COMPARISON: 11/24/2023 Findings: There is no evidence of any significant mediastinal, hilar or axillary lymphadenopathy. Extensive cor onary artery calcifications present. There is no evidence of pleural or pericardial effusion. Stable posterior 2 mm right upper lobe pulmonary nodule (axial image 29). Stable 3 mm left basilar pu lmonary nodule (axial image 95). Stable 5 mm groundglass nodule right lower lobe (axial image 61). Images through the upper abdomen reveal no abnormalities. Impression: Stable subcentimeter pulmonary nodules, as above. Reviewed, dictated and finalized at [facility]. Impression: Stable subcentimeter pulmonary nodules, as above.
--- OUTSIDE RECORDS SUMMARY | 2024-11-25 09:22 | XMS_ITS | Clinical Summary ---
Author Organization [facility] Address [address] [place] [address] Care Team Providers Care Commercial Maintenance Technician Name Role Phone Esvin Padilla DO Primary Care Provider [phone] Allergies No known active allergies Medications lisinopril-hydr oCHLOROthiazide (ZESTORETIC) 20-25 mg tablet Take 1 Tablet by mouth daily. 06/12/2022 Active meloxicam (MOBIC) 15 mg tablet Take 15 mg by mouth daily. 04/01/2023 Active ezetimibe (ZETIA) 10 mg tablet Take 10 mg by mouth daily. 04/01/2023 Active DULoxetine (CYMBALTA) 60 mg Capsule, Delayed Release(E.C.) Take 1 Capsule by mouth daily. 01/28/2024 Active tamsulosin (FLOMAX) 0.4 mg capsule Take 1 Capsule by mouth daily. 01/28/2024 Active ondansetron (ZOFRAN ODT) 4 mg Tablet, Rapid Dissolve Take 1 Tablet (4 mg) by mouth every 8 hours as needed for Nausea/Emesis . Dissolve tablet on top of tongue, then swallow with saliva. 20 Tablet 1 08/06/2024 Active bosutinib (BOSULIF) 400 mg tabletIndicatio ns:CML (chronic myelocytic leukemia) (CMS/HCC) Take 1 Tablet (400 mg) by mouth daily with breakfast. 30 Tablet 4 09/21/2024 Active Active Problems No known active problems Encounters Date Type Department Care Team Description 09/21/[address] [facility] - [place] [address] [place] [id number] Kip Dumont MD CML (chronic myelocytic leukemia) (CMS/HCC) from Last 3 Months Family History Medical History Relation Name Comments No Known Problems Brother 1 No Known Problems Brother 2 No Known Problems Brother 3 No Known Problems Brother 4 No Known Problems Brother 5 Diabetes Father Pancreatic Cancer Father Heart Disease Mother No Known Problems Sister 1 No Known Problems Sister 2 No Known Problems Son 1 No Known Problems Son 2 No Known Problems Son 3 No Known Problems Son 4 Relation Name Status Comments Brother 1 Alive Brother 2 Brother 3 Alive Brother 4 Alive Brother 5 Alive Father Alive Mother Sister 1 Sister 2 Alive Son 1 Alive Son 2 Alive Son 3 Alive Son 4 Alive Social History Tobacco Use Types Packs/Day Years Used Date Smoking Tobacco: Every Day Cigarettes 09 24 Started: 11/20/1993 Smokeless Tobacco: Never Tobacco Cessation:Ready to Q uit: Not Asked; Counseling Given: Not Answered Alcohol Use Standard Drinks/Week Comments Never 0 (1 standard drink = 0.6 oz pur e alcohol) Sex and Gender Information Value Date Recorded Sex Assigned at Not on file Legal Sex Male 12:34 PM 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 Gender Identity Not on file Sexual Orientation Not on file Last Filed Vital Signs Vital Sign Reading Time Taken Comments Blood Pressure 118/65 08/06/2024 11:49 AM 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 Pulse 58 08/06/2024 11:49 AM 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 Temperature 36.8 C (98.2 F) 08/06/2024 11:49 AM 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 Respiratory Rate 16 08/06/2024 11:49 AM 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 Oxygen Saturation 97% 08/06/2024 11:49 AM 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 Inhaled Oxygen Concentration - - Weight 88 kg (194 lb) 08/06/2024 11:49 AM 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 Height - - Body Mass Index - - Plan of Treatment Upcoming Encounters Date Type Department Care Team (Late st Contact Info) Description 12/10/2024 11:30 AM CDT Office Visit [facility] - [place] [address] [place] [address] Kip Dumont MD [address] [facility] [address] [place] [address] Health Maintenance Due Date Last Done Comments DTAP/TDAP/TD VACCINES (1 - Tdap) 01/25/1980 ZOSTER VACCINE (1 of 2) 01/25/1980 COLORECTAL SCREENING 2006 Colorectal Cancer Screening 2006 FIT-DNA Q 3 years 2006 FIT/FOBT Q 1 year 2006 Flex Sig/CT Colonography Q 5 years 2006 Lung Cancer Screening 2011 RSV VACCINE (60+ or ) (1 - Risk 60-74 years 1-dose series) 2021 INFLUENZA VACCINE (#1) 2024 Insurance RX [facility] Commercial [facility] MEDICAID Care Teams Commercial Maintenance Technician Relationship Specialty Start Date End Date Esvin Padilla DO [address] [place] [address] PCP - General Family Practice 03/24/24
--- OUTSIDE RECORDS SUMMARY | 2024-11-25 09:22 | XMS_ITS | Continuity of Care Document ---
Author Organization [facility] Address [address] [place] [address] [place] [address] Phone Care Team Providers Care Director Of Teenage Activities Name Role Phone Shyam Reece Unavailable Unavailable Procedures Procedure Date Office/outpatient Visit, [facility] Advance Directives Directive Yes / No Effective Date File Name No Information Encounters Encounter Description Practice Location Reason(s) For Visit Diagnoses Date Provider Providers Copied on Encounter Office/outpat ient Visit, [facility], [address], [place], [place], [id number], [place] tel:[phone] [facility] No Information [address] Shyam. [address] [facility] [address], [place], [address], [place]. tel:[phone] Referring Provider: Govind Yo OD, [address], [address]. tel:[phone] Family History Family Member Type Diagnosis Age At Onset No Information Payers Payer name Insurance type Covered libertarian ID Authoriza tion(s) No Information Social History Type Description Quantity Date Captured Comments Sex Male Smoking Status No Information Chief Complaint And Reason For Visit No Information Reason For Referral Reason For Referral No Information History Of Present Illness Encounter Date Complaint History Of Prese nt Illness No Information Functional Status Date Functional Assessmen t No Information Instructions Date Instruction Additional Infor mation No Information Assessments Type Assessment Date No Information Patient Care Teams Name Effective Dates (start - stop) Status Members No Information
[2024-11-25 09:25] LABS: Basophils Absolute Auto 0.06 K/mm3 (0.00-0.10); Basophils Percent Auto 0.5 % (0.0-1.0); Eosinophils Absolute Auto 0.18 K/mm3 (0.02-0.50); Eosinophils Percent Auto 1.6 % (1.0-6.0); Hematocrit 51.7 % (40.0-54.0); Hemoglobin 16.8 g/dL (14.0-18.0); Immature Granulocyte Absolute 0.04 K/mm3 (0.00-0.00); Immature Granulocyte Percent A 0.4 % (0.0-0.0); Lymphocytes Absolute Auto 2.32 K/mm3 (1.10-4.50); Lymphocytes Percent Auto 20.4 % (18.0-42.0); Mean Corpuscular HGB Conc 32.5 g/dL (32-36); Mean Corpuscular Volume 89.3 fL (78.0-102.0); Mean Platelet Volume 10.5 fl (8.7-11.0); Neutrophils Absolute Auto 7.95 K/mm3 (1.70-7.20); Neutrophils Percent Auto 70.1 % (50.0-70.0); Platelet Count Result 229 K/mm3 (150-420); Red Blood Count 5.79 M/mm3 (4.70-6.10); Red Cell Distribution Width 14.3 % (11.6-14.4); White Blood Count 11.4 K/mm3 (4.8-10.8)
[2024-11-25 10:08] LABS: Alanine Aminotransferase 30 U/L (16-63); Albumin Level 4.5 g/dL (3.4-5.0); Alkaline Phosphatase 95 U/L (46-116); Anion Gap 10 mmol/L (4-12); Aspartate Amino Transferase 13 U/L (15-37); Bilirubin,Total 0.6 mg/dL (0.00-1.00); Blood Urea Nitrogen 18 mg/dL (7-18); Calcium 9.6 mg/dL (8.5-10.1); Carbon Dioxide 31 mmol/L (21-32); Chloride 101 mmol/L (98-108); Estimated Glomerular Filt Rate > 60; Glucose 96 mg/dL (70-99); Osmolality Calculated 295 mOsm/kg (285-295); Potassium 3.7 mmol/L (3.5-5.1); Sodium 142 mmol/L (136-145); Total Protein 7.6 g/dL (6.4-8.2)
[2024-12-01 19:12] LABS: BCR/abl P190 NOT DETECTED; BCR/abl P210 NOT DETECTED; BCR/abl Source PERIPHERAL
== END 2024-11-25 09:11 | disposition home or self-care (01) ==
PROVIDERS: PCP Family Medicine; Visit Provider Internal Medicine Hematology & Oncology
DX: C92.10 Chronic myeloid leukemia, BCR/ABL-positive, not having achieved remission (principal); Z12.2 Encounter for screening for malignant neoplasm of respiratory organs; R91.8 Other nonspecific abnormal finding of lung field
CPT/HCPCS: 36415; 71250; 80053; 85025

== ENCOUNTER 2025-01-10 12:38 | Outpatient (CLI) | payer OTHER, SELFPAY ==
--- NOTE | ~2025-01-10 | XR_ITS ---
HISTORY: GENERAL RT LEG PAIN,H/O OF HARDWARE/REMOVED THEN COMPARISON: None TECHNIQUE: 2 views of the right ankle were performed FINDINGS: No acute fracture or dislocation. No significant soft tissue swelling. The ankle mortise is preserved. Bone mineralization is age-appropriate. Postoperative change within the distal shaft of the tibia and fibula IMPRESSION: Postoperative change, without acute fracture. Reviewed, dictated and finalized at location A.
--- NOTE | ~2025-01-10 | XR_ITS ---
EXAM: XR hip BI 2V w AP pelvis DATE: 01/10/2025 13:06 HISTORY: EMIL HIP PAIN,RT>LT,NKI . COMPARISON: None available. FINDINGS: Surgical clips over the left inguinal canal. Lumbar degenerative disc disease. Bilateral s uperior hip joint space narrowing. No fracture or dislocation. No lytic or blastic lesions. IMPRESSION: Mild bilateral hip osteoarthritis. Reviewed, dictated and finalized at location K.
--- NOTE | ~2025-01-10 | XR_ITS ---
HISTORY: GENERAL RT LEG PAIN,H/O OF HARDWARE/REMOVED THEN COMPARISON: None TECHNIQUE: 2 views of the right foot were performed FINDINGS: No acute fracture or dislocation is appreciated. Moderate degenerative disease is noted. The base of the fifth metatarsal is intact. A small calcaneal spur is noted. Ossification of the insertion of the Achilles tendon is present. No significant soft tissue swelling is present. IMPRESSION: Degenerative disease without acute fracture. Reviewed, dictated and finalized at location A.
--- NOTE | ~2025-01-10 | XR_ITS ---
EXAM: XR lumbar spine 2-3V DATE: 01/10/2025 13:06 HISTORY: M54.9 - Dorsalgia, unspecified . COMPARISON: CT abdomen pelvis 04/04/2023. FINDINGS: 5 nonrib-bearing lumbar-type vertebral bodies. Pedicles intact. 3 mm anterolisthesis at L4 -5. Possible L4 pars defects. Mild multilevel disc space narrowing and marginal osteophytosis. Modera te-severe lower lumbar facet hypertrophy/sclerosis. Atherosclerotic aortic calcifications, without ev ident aneurysm. IMPRESSION: Grade 1 anterolisthesis at L4-5. Possible pars defects at L4, consider oblique lumbar spi ne radiographs for further evaluation. Mild multilevel lumbar degenerative disc disease. Moderate-sev ere lower lumbar facet arthropathy. Reviewed, dictated and finalized at location K. IMPRESSION: Grade 1 anterolisthesis at L4-5. Possible pars defects at L4, consi glenys oblique lumbar spine radiographs for further evaluation. Mild multilevel dony mbar degenerative disc disease. Moderate-severe lower lumbar facet arthropathy.
--- NOTE | ~2025-01-10 | XR_ITS ---
HISTORY: M25.561 - Pain in right knee COMPARISON: None TECHNIQUE: 2 views of the right knee were performed FINDINGS: No acute or subacute fracture, erosion, lytic or sclerotic lesion. Medial tibiofemoral joint space narrowing is identified. No suprapatellar joint effusion is identified. The infrapatellar joint space is clear. IMPRESSION: Trace degenerative disease, without acute fracture Reviewed, dictated and finalized at location A.
--- OUTSIDE RECORDS SUMMARY | 2025-01-10 12:45 | XMS_ITS | Clinical Summary ---
Author Organization [facility] Address [address] [place] [address] Care Team Providers Care Motor Rebuilder Name Role Phone Esvin Padilla DO Primary Care Provider [phone] Allergies No known active allergies Medications lisinopril-hydr [...] Encounters Date Type Department Care Team Description 12/15/2024 Abstract [facility] - [place] [place] [address] Kip Dumont MD 12/14/2024 9:30 AM CDT Office Visit [facility] - [place] [place] [address] Ellen Torres MD CML (chronic myelocytic leukemia) (CMS/HCC) (Primary Dx) 12/03/2024 Orders Only [facility] - [place] [place] [address] Kip Dumont MD 11/26/2024 Orders Only [facility] - [place] [address] [place] [address] Kip Dumont MD 11/25/2024 Orders Only [facility] - [place] [place] [address] Kip Dumont MD from Last 3 Months Family History Medical [...] Used Date Smoking Tobacco: Every Day Cigarettes 1 31.1 Started: 11/20/1993 Smokeless Tobacco: Never Tobacco Cessation:Ready to Q uit: Not Asked; Counseling Given: Not Answered Alcohol Use Standard Drinks/Week Comments Never 0 (1 standard drink = 0.6 oz pur e alcohol) Sex and Gender Information Value Date Recorded Sex Assigned at Not on file 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 Gender Identity Not on file Sexual Orientation Not on file Last Filed Vital Signs Vital Sign Reading Time Taken Comments Blood Pressure 115/71 12/14/2024 8:53 AM CDT Pulse 59 12/14/2024 8:53 AM CDT Temperature 36.5 C (97.7 F) 12/14/2024 8:53 AM CDT Respiratory Rate 15 12/14/2024 8:53 AM CDT Oxygen Saturation 98% 12/14/2024 8:53 AM CDT Inhaled Oxygen Concentration - - Weight 91 kg (200 lb 9.6 oz) 12/14/2024 8:53 AM CDT Height - - Body Mass Index - - Plan of Treatment Upcoming Encounters Date Type Department Care Team (Late st Contact Info) Description 04/18/2025 10:00 AM CDT Office Visit [facility] [address] [facility] [address] [place] [address] Kip Dumont MD [address] [facility] [address] [place] [address] Health Maintenance Due Date Last [...] 1-dose series) 2021 INFLUENZA VACCINE (#1) 2024 Procedures Procedure Name Priority Date/Time Associated Diagnosis Comments COMPREHENSIVE METABOLIC PANEL Routine 11/25/2024 4:27 PM CDT BCR/ABL DIAGNOSTIC ASSAY W/REFLEX Routine 11/25/2024 2:00 PM CDT COMPREHENSIVE METABOLIC PANEL Routine 11/25/2024 11:[address] CHEST WO CONTRAST Routine 11/25/2024 11:09 AM CDT from Last 3 Months Results * COMPREHENSIVE METABOLIC PANEL (11/25/2024 4:27 PM CDT) Only the most recent of2 resultswithin the time period is included. Blood Kip Dumont MD CHEMISTRY ORDERABLES Final Resu lt * BCR/ABL DIAGNOSTIC ASSAY W/REFLEX (11/25/2024 2:00 PM CDT) Kip Dumont MD BODY FLUIDS AND STOOLS Final Re sult * CT CHEST WO CONTRAST (11/25/2024 11:09 AM CDT) Anatomical Region Laterality Modality Chest Computed Tomogra phy Kip Dumont MD CT ORDERABLES Final Result from Last 3 Months Insurance RX [facility] Commercial [facility] MEDICAID Care Teams Motor Rebuilder Relationship Specialty Start Date End Date Esvin Padilla DO [address] [place] [address] PCP - General Family Practice 03/24/24
--- OUTSIDE RECORDS SUMMARY | 2025-01-10 12:45 | XMS_ITS | Continuity of Care Document ---
Author Organization [facility] Address [address] [place] [address] [place] [address] Phone Care Team Providers Care Photography Intern Name Role Phone Shyam Reece Unavailable Unavailable Procedures Procedure Date Office/outpatient Visit, [facility] Advance Directives Directive Yes / No Effective Date File Name No Information Encounters Encounter Description Practice Location Reason(s) For Visit Diagnoses Date Provider Providers Copied on Encounter Office/outpat ient Visit, [facility], [address], [place], [place], [id number], [place] tel:[phone] [facility] No Information 0-[address]. [address] [facility] [address], [place], [address], [place]. tel:[phone] Referring Provider: Govind Yo OD, [address], [address]. tel:[phone] Family History Family Member Type Diagnosis Age At Onset No Information Payers Payer name Insurance type Covered republican ID Authoriza tion(s) No Information Social History [...]
== END 2025-01-10 12:39 | disposition home or self-care (01) ==
LOC: CHSIMG 12:41
PROVIDERS: PCP Nurse Practitioner Family; Visit Provider Nurse Practitioner Family
DX: M25.579 Pain in unspecified ankle and joints of unspecified foot (principal); M54.9 Dorsalgia, unspecified; G89.29 Other chronic pain; M25.561 Pain in right knee; M16.0 Bilateral primary osteoarthritis of hip; Z98.890 Other specified postprocedural states; M51.369 Other intervertebral disc degeneration, lumbar region without mention of lumbar back pain or lower extremity pain; M43.16 Spondylolisthesis, lumbar region
CPT/HCPCS: 72100; 73521; 73560; 73600; 73620

== ENCOUNTER 2025-04-04 09:25 | Outpatient (CLI) | payer OTHER, SELFPAY ==
--- OUTSIDE RECORDS SUMMARY | 2025-04-04 09:35 | XMS_ITS | Continuity of Care Document ---
Author Organization [facility] Address [address] [place] [address] [place] [address] Phone Care Team Providers Care Clinical Allergist Name Role Phone Shyam Reece Unavailable Unavailable Procedures Procedure Date Office/outpatient Visit, [facility] Advance Directives Directive Yes / No Effective Date File Name No Information Encounters Encounter Description Practice Location Reason(s) For Visit Diagnoses Date Provider Providers Copied on Encounter Office/outpat ient Visit, [facility], [address], [place], [place], [address], [place] tel:[phone] [facility] No Information 0-[address]. [address] [facility] [address], [place], [address], [place]. tel:[phone] Referring Provider: Govind Yo OD, [address], [address]. tel:[phone] Family History Family Member Type Diagnosis Age At Onset No Information Payers Payer name Insurance type Covered alliance party ID Authoriza tion(s) No Information Social History [...]
--- OUTSIDE RECORDS SUMMARY | 2025-04-04 09:35 | XMS_ITS | Clinical Summary ---
Author Organization [facility] Address [address] [place] [address] Care Team Providers Care Pebble Mill Operator Name Role Phone Esvin Padilla DO Primary Care Provider Allergies No known active allergies Medications lisinopril-hydr [...] by mouth daily with breakfast. 30 Tablet 5 01/18/2025 Active Active Problems No known active problems Encounters Date Type Department Care Team Description 01/18/2025 Refill [facility] H[facility]ology - [place] [place] [address] Kip Dumont MD CML (chronic myelocytic leukemia) ([facility]) 01/13/2025 External Device Data [facility] ABSTRACTION Provider, Abstract 01/12/2025 External Device Data [facility] ABSTRACTION Provider, Abstract from Last 3 Months Family History Medical [...] Date Smoking Tobacco: Every Day Cigarettes 1 31.4 Started: 11/20/1993 Smokeless Tobacco: Never Tobacco Cessation:Ready to Q uit: Not Asked; Counseling Given: Not Answered Alcohol Use Standard Drinks/Week Comments Never 0 (1 standard drink = 0.6 oz pur e alcohol) Sex and Gender Information Value Date Recorded Sex Assigned at Not on file 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 Gender Identity Not on file Sexual Orientation [...] Description 04/18/2025 10:00 AM CDT Office Visit [facility] H[facility]ology - [place] [address] [place] [address] Kip Dumont MD [address] [facility] [address] [place] [address] Health Maintenance Due Date Last Done Comments DTAP/TDAP/TD VACCINES (1 - Tdap) 01/25/1980 ZOSTER VACCINE (1 of 2) 01/25/1980 COLORECTAL SCREENING 2006 Colorectal Cancer Screening 2006 FIT-DNA Q 3 years 2006 FIT/FOBT Q 1 year 2006 Flex Sig/CT Colonography Q 5 years 2006 Lung Cancer Screening 2011 INFLUENZA VACCINE (#1) 2025 RSV VACCINE (60+ or ) (1 - 1-dose 75+ series) 01/25/2036 Insurance RX [facility] Commercial [facility] MEDICAID Care Teams Pebble Mill Operator Relationship Specialty Start Date End Date Esvin Padilla DO [address] [address] PCP - General Family Practice 03/24/24
[2025-04-04 10:17] LABS: Alanine Aminotransferase 26 U/L (6-50); Albumin Level 5.0 g/dL (3.5-5.1); Alkaline Phosphatase 81 U/L (38-126); Anion Gap 8 mmol/L (4-12); Aspartate Amino Transferase 29 U/L (17-59); Bilirubin,Total 0.8 mg/dL (0.2-1.3); Blood Urea Nitrogen 7 mg/dL (9-20); Calcium 10.2 mg/dL (8.4-10.2); Carbon Dioxide 31 mmol/L (22-30); Chloride 100 mmol/L (98-107); Estimated Glomerular Filt Rate > 60; Glucose 108 mg/dL (65-110); Osmolality Calculated 287 mOsm/kg (285-295); Potassium 4.4 mmol/L (3.4-5.0); Sodium 139 mmol/L (137-145); Total Protein 7.4 g/dL (6.3-8.2)
[2025-04-04 10:27] LABS: Hematocrit 49.0 % (40.0-54.0); Hemoglobin 16.0 g/dL (14.0-18.0); Immature Granulocyte Percent A 0.4 % (0.0-0.0); Lymphocytes Absolute Auto 2.06 K/mm3 (1.10-4.50); Mean Corpuscular HGB Conc 32.7 g/dL (32-36); Mean Corpuscular Hemoglobin 29.1 pg (27.0-31.0); Mean Corpuscular Volume 89.1 fL (78.0-102.0); Nucleated Red Blood Cells Absolute Auto 0.00 K/mm3 (0.00-0.00); Nucleated Red Blood Cells Perc 0.0 % (0-0.0); Platelet Count Result 233 K/mm3 (150-420); Red Blood Count 5.50 M/mm3 (4.70-6.10); White Blood Count 8.9 K/mm3 (4.8-10.8)
== END 2025-04-04 09:26 | disposition home or self-care (01) ==
LOC: CHSLAB 09:32
PROVIDERS: PCP Family Medicine; Visit Provider Internal Medicine
DX: C92.10 Chronic myeloid leukemia, BCR/ABL-positive, not having achieved remission (principal)
CPT/HCPCS: 36415; 80053; 81206; 81207; 85025

== ENCOUNTER 2025-08-24 09:31 | Outpatient (CLI) | payer OTHER, SELFPAY ==
--- OUTSIDE RECORDS SUMMARY | 2025-08-24 09:40 | XMS_ITS | Clinical Summary ---
Author Organization [facility] Address [address] [place] [address] Care Team Providers Care Director Of Safety Name Role Phone Esvin Padilla DO Primary Care Provider [phone] Allergies No known active allergies Medications meloxicam (MOBIC) 15 mg tablet Take 15 [...] with saliva. 20 Tablet 1 08/06/2024 Active hydroCHLOROthia zide 25 mg tablet Take 1 Tablet by mouth daily. 02/11/2025 Active lisinopriL (PRINIVIL) 20 mg tablet Take 1 Tablet by mouth daily. 02/13/2025 Active bosutinib (BOSULIF) 400 mg tabletIndicatio ns:CML (chronic myelocytic leukemia) (CMS/HCC) Take 1 Tablet (400 mg) by mouth daily with breakfast. 30 Tablet 5 06/28/2025 Active Active Problems No known active problems Encounters Date Type Department Care Team Description 08/09/2025 External Device Data ST[facility] ABSTRACTION Provider, Abstract 06/28/2025 Refill [facility] Hematology [address] [place] [address] Kip Dumont MD CML (chronic myelocytic leukemia) [...] Date Smoking Tobacco: Every Day Cigarettes 1 31.8 Started: 11/20/1993 Smokeless Tobacco: Never Alcohol Use Standard Drinks/Week Comments Never 0 (1 standard drink = 0.6 oz pur e alcohol) Sex and Gender Information Value Date Recorded Sex Assigned at Not on file 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 Gender Identity Not on file Sexual Orientation Not on file Last Filed Vital Signs Vital Sign Reading Time Taken Comments Blood Pressure 153/88 04/18/2025 9:51 AM CDT Pulse 55 04/18/2025 9:49 AM CDT Temperature 36.7 C (98 F) 04/18/2025 9:49 AM CDT Respiratory Rate 16 04/18/2025 9:49 AM CDT Oxygen Saturation 97% 04/18/2025 9:49 AM CDT Inhaled Oxygen Concentration - - Weight 93.2 kg (205 lb 6.4 oz) 04/18/2025 9:49 A M CDT Height - - Body Mass Index - - Plan of Treatment Upcoming Encounters Date Type Department Care Team (Late st Contact Info) Description 09/01/2025 10:15 AM EARLY CHILDHOOD TEACHER ASSISTANT Office Visit [facility] [address] [place] [address] Kip Dumont MD [address] [facility] [address] [place] [address] Health Maintenance Due Date Last Done Comments Pre-Diabetes and Diabetes Screening 1961 DTAP/TDAP/TD VACCINES (1 - Tdap) 01/25/1980 ZOSTER VACCINE (1 of 2) 01/25/1980 COLORECTAL SCREENING 2006 Colorectal Cancer Screening 2006 FIT-DNA Q 3 years 2006 FIT/FOBT Q 1 year 2006 Flex Sig/CT Colonography Q 5 years 2006 Lung Cancer Screening 2011 INFLUENZA VACCINE (#1) 2025 RSV VACCINE (60+ or ) (1 - 1-dose 75+ series) 01/25/2036 Insurance RX [facility] Commercial [facility] MEDICAID Care Teams Director Of Safety Relationship Specialty Start Date End Date Esvin Padilla DO [address] [phone] PCP - General Family Practice 03/24/24
[2025-08-24 10:12] LABS: Hematocrit 48.1 % (40.0-54.0); Hemoglobin 16.0 g/dL (14.0-18.0); Immature Granulocyte Percent A 0.5 % (0.0-0.0); Lymphocytes Absolute Auto 2.35 K/mm3 (1.10-4.50); Mean Corpuscular HGB Conc 33.3 g/dL (32-36); Mean Corpuscular Hemoglobin 29.6 pg (27.0-31.0); Mean Corpuscular Volume 88.9 fL (78.0-102.0); Nucleated Red Blood Cells Absolute Auto 0.00 K/mm3 (0.00-0.00); Nucleated Red Blood Cells Perc 0.0 % (0-0.0); Platelet Count Result 271 K/mm3 (150-420); Red Blood Count 5.41 M/mm3 (4.70-6.10); White Blood Count 9.6 K/mm3 (4.8-10.8)
[2025-08-24 10:29] LABS: Alanine Aminotransferase 26 U/L (6-50); Albumin Level 5.1 g/dL (3.5-5.1); Alkaline Phosphatase 78 U/L (38-126); Anion Gap 14 mmol/L (4-12); Aspartate Amino Transferase 31 U/L (17-59); Bilirubin,Total 0.6 mg/dL (0.2-1.3); Blood Urea Nitrogen 12 mg/dL (9-20); Calcium 9.5 mg/dL (8.4-10.2); Carbon Dioxide 23 mmol/L (22-30); Chloride 107 mmol/L (98-107); Estimated Glomerular Filt Rate > 60; Glucose 100 mg/dL (65-110); Osmolality Calculated 297 mOsm/kg (285-295); Potassium 3.9 mmol/L (3.4-5.0); Sodium 144 mmol/L (137-145); Total Protein 7.8 g/dL (6.3-8.2)
[2025-08-31 04:07] LABS: Interpretation Negative (.)
== END 2025-08-24 09:32 | disposition home or self-care (01) ==
LOC: CHSLAB 09:33
PROVIDERS: PCP Family Medicine; Visit Provider Internal Medicine Hematology & Oncology
DX: C92.10 Chronic myeloid leukemia, BCR/ABL-positive, not having achieved remission (principal)
CPT/HCPCS: 36415; 80053; 85025